=== PATIENT | female | born 1950 | race African-American/Black ===

== ENCOUNTER 2016-07-19 14:06 | Emergency (ER) | payer MEDICARE, OTHER ==
[~2016-07-19] VITALS: Ht 162.6 cm; Wt 75.0 kg
[~2016-07-19 14:06] MED LIST: FAMO-18 PO; HYDR-762 PO; VALA100057 PO
[2016-07-19 14:43] VITALS: Ht 162.6 cm; Wt 75.0 kg
[2016-07-19] MEDS ORDERED: HYDROCODONE/APAP (5/325) TAB PO ONE (15:30)
[2016-07-19] MEDS ORDERED: IBUPROFEN 600 MG TAB PO ONE (15:30)
--- NOTE | 2016-07-19 16:41 | RADRPT ---
PROCEDURE: XR Hip. CLINICAL INDICATION: 66-year-old female with left hip pain. TECHNIQUE: AP and frog lateral views of the left hip were performed. COMPARISON: None. FINDINGS: There is normal mineralization and alignment. No fracture or osseous lesion is identified. There are normal joints without evidence of arthritis or effusion. The soft tissues are unremarkable. IMPRESSION: Unremarkable left hip. RPTAT:AAJJ Physician Sen Date Time Electronically viewed and signed by Matthew Bhatt Physician on 07/19/2016 16:40 MARIZOL/
[2016-07-19] MEDS ORDERED: HYDR-906 PO (17:30)
[2016-07-19] MEDS ORDERED: BACITUD TOP (17:30)
[2016-07-19 17:50] VITALS: BP 172/86; PULSE 80; RESP 16; TEMP 98.1
--- NOTE | 2016-07-19 18:33 | ERD ---
ER Documentation Chief Complaint Date/Time DATE: 07/19/16 TIME: 18:28 Chief Complaint Pt with L leg rash and pain believes it could be shingles. HPI 66-year-old female patient with a past medical history of hypertension presents to the ED complaining of left leg and hip pain that started 2 days ago. Reports that she started to have a rash on her upper buttocks. States that she also has residual right breast pain due to the shingles she had previously 2 years ago. Describes the pain as sharp and rates it a 10 out of 10. States that the pain shoots down her leg. Denies any trauma or injuries. Denies any abdominal pain, nausea, vomiting, diarrhea, numbness and tingling, weakness, chest pain, shortness of breath, wheezing, dyspnea on exertion, orthopnea. Reports that she has not taken anything for pain. ROS All systems reviewed and are negative except as per history of present illness. Medications Home Meds Active Scripts Bacitracin* (Bacitracin Oint (UD)*) 1 Applic Oint, 1 APPLIC TOP ONCE, #12 PKT APPLY TO Prov:JOLEEN HAIR PA-C 07/19/16 Hydrocodone/Acetaminophen (Bad Axe 5-325 Tablet) 1 Each Tablet, 1 TAB PO QHS Y for PAIN, #14 TAB Prov:JOLEEN HAIR PA-C 07/19/16 Hydrocodone Bit-Acetaminophen* (Bad Axe*) 10-325 Mg Tablet, 1 TAB PO Q6 Y for PAIN , #20 TAB Prov:VALERY BYRNES MD 01/04/15 Famotidine* (Pepcid*) 20 Mg Tablet, 20 MG PO BID for 14 Days, TAB Prov:VALERY BYRNES MD 01/04/15 Valacyclovir Hcl* (Valtrex*) 1,000 Mg Tablet, 1000 MG PO TID for 7 Days Prov:VALERY BYRNES MD 01/04/15 Allergies Allergies: Coded Allergies: No Known Allergy (Unverified , 07/19/16) PMhx/Soc Medical and Surgical Hx: pt denies Medical Hx, pt denies Surgical Hx History of Surgery: No Anesthesia Reaction: No Hx Neurological Disorder: No Hx Respiratory Disorders: No Hx Cardiac Disorders: Yes (HTN) Hx Psychiatric Problems: No Hx Miscellaneous Medical Probl: No Hx Alcohol Use: Yes (socially) Hx Substance Use: No Hx Tobacco Use: Yes (1-2 CIGS/DAY) Smoking Status: Current every day smoker Physical Exam Vitals Vital Signs Date Time Temp Pulse Resp B/P Pulse Ox O2 Delivery O2 Flow Rate FiO2 07/19/16 17:50 98.1 80 16 172/86 97 Room Air 07/19/16 14:43 98.3 83 18 182/110 99 Physical Exam Const: [id number], well-nourished. In no acute distress. Head: Atraumatic, normocephalic Eyes: Normal Conjunctiva without injection. No purulent discharge. PERRL. EOMI ENT: Normal external ear. Ear canal without erythema. Tympanic membrane pearly mata without effusion or bulging. Nasal canal clear with normal turbinates. Moist oropharynx without tonsillar exudates. Non-erythematous pharynx. Uvula midline. No drooling. No trismus. Neck: Full range of motion. No meningismus. No cervical lymphadenopathy. Resp: Clear to auscultation bilaterally. No wheezing, rhonchi, rales, or crackles. No accessory muscle use. No retractions. Cardio: Regular rate and rhythm. No murmurs, rubs or gallops. Abd: Soft, non tender, non distended. Normal bowel sounds. No palpable masses. No rebound tenderness. No guarding. Skin: No petechiae or rashes. 1 cm skin tears near pilonidal area. No erythema , fluctuance, edema, noted. Back: No midline tenderness. No CVA tenderness. Tenderness to palpation of the left buttocks. No tenderness to palpation of the bilateral hips. Was unable to perform straight leg test due to patient's pain. Ext: No cyanosis, or edema. Neur: Awake and alert. Psych: Normal Mood and Affect Results 24 hrs Current Medications Medications (Trade) Dose Ordered Sig/Denis Route PRN Reason Start Time Stop Time Status Last Admin Dose Admin Ibuprofen (Motrin) 600 mg ONCE ONCE PO 07/19/16 15:30 07/19/16 15:30 DC Acetaminophen/ Hydrocodone Bitart (Bad Axe (5/325)) 1 tab ONCE ONCE PO 07/19/16 15:30 07/19/16 15:31 DC 07/19/16 15:25 Procedures/MDM This is a 66-year-old female patient with no significant past medical history presents the ED complaining of left buttocks pain that radiates down her leg that started 2 days ago. Patient was noted to have a blood pressure of 182/ 110. Patient has not taken her hypertensive medication. Patient's blood pressure was elevated (>120/80) but appears stable without evidence of hypertension emergency or urgency. The patient was counseled about the risks of hypertension and urged to pursue outpatient monitoring and therapy within a week with their primary care physician. Low suspicion for end organ damage. This case was discussed with my supervising physician, Dr. Garsia who also evaluated patient at this time. Patient states that her pain has improved after receiving Bad Axe here in the ED. Patient symptoms and clinical exam is consistent with sciatica. Patient is ambulating here in the ED without difficulty. Denies saddle anesthesia, numbness or tingling, urine or bowel incontinence, weakness. Low suspicion for cauda equina syndrome, cord compression, nephrolithiasis, aortic aneurysm, aortic dissection, epidural abscess, spinal hematoma, malignancy, pyelonephritis, or other emergent conditions. Patient also was noted to have skin tears on the pilonidal area there is no fluctuance or induration or erythema or fever noted. During the exam, patient also reports that she has been sitting more than usual and doing work on the computer. Low suspicion for pilonidal abscess, perianal abscess, perirectal abscess. Other differential diagnosis considered include but is not limited to allergic contact dermatitis, urticaria, insect bites, eczema, tinea infection, psoriasis. Low suspicion for scabies, SJS/TEN, erythema multiforme, sepsis, cellulitis, necrotizing fascitis, gangrene, meningococcemia or other emergent conditions. Discharge medications: Bacitracin, Bad Axe Follow up with primary care physician in 1-2 days. Instructed patient to return to the ED sooner for any worsening symptoms. Patient's questions were answered. Patient understood and agreed with discharge plan. Patient discharged stable. Departure Diagnosis: Primary Impression: Sciatica Laterality: left Qualified Code: M54.32 - Sciatica of left side Additional Impression: Skin tear Condition: Stable Patient Instructions: Understanding Sciatica, Skin Ulcer, Simple [facility] YOU HAVE RECEIVED A MEDICAL SCREENING EXAM AND THE RESULTS INDICATE THAT YOU DO NOT HAVE A CONDITION THAT REQUIRES URGENT TREATMENT IN THE EMERGENCY DEPARTMENT. FURTHER EVALUATION AND TREATMENT OF YOUR CONDITION CAN WAIT UNTIL YOU ARE SEEN IN YOUR DOCTORS OFFICE WITHIN THE NEXT 1-2 DAYS. IT IS YOUR RESPONSIBILITY TO MAKE AN APPOINTMENT FOR FOLOW-UP CARE. IF YOU HAVE A PRIMARY DOCTOR --you should call your primary doctor and schedule an appointment IF YOU DO NOT HAVE A PRIMARY DOCTOR YOU CAN CALL OUR PHYSICIAN REFERRAL HOTLINE AT IF YOU CAN NOT AFFORD TO SEE A PHYSICIAN YOU CAN CHOSE FROM THE FOLLOWING [facility] [address] [facility] [address] [facility] [address] [facility] [address] [facility] [address] [facility]. [facility] [address] [facility]. [facility] YOU HAVE RECEIVED A MEDICAL SCREENING EXAM AND THE RESULTS INDICATE THAT YOU DO NOT HAVE A CONDITION THAT REQUIRES URGENT TREATMENT IN THE EMERGENCY DEPARTMENT. FURTHER EVALUATION AND TREATMENT OF YOUR CONDITION CAN WAIT UNTIL YOU ARE SEEN IN YOUR DOCTORS OFFICE WITHIN THE NEXT 1-2 DAYS. IT IS YOUR RESPONSIBILITY TO MAKE AN APPOINTMENT FOR FOLOW-UP CARE. IF YOU HAVE A PRIMARY DOCTOR --you should call your primary doctor and schedule and appointment IF YOU DO NOT HAVE A PRIMARY DOCTOR YOU CAN CALL OUR PHYSICIAN REFERRAL HOTLINE AT . IF YOU CAN NOT AFFORD TO SEE A PHYSICIAN YOU CAN CHOSE FROM THE FOLLOWING [facility]: [facility] [address] [place] [address] [facility] [address] [place] [address] [facility] + [facility] [address] [place] [address] [facility] Additional Instructions: Call your primary care doctor TOMORROW for an appointment during the next 2-3 days for a referral to physical therapy.See the doctor sooner or return here if your condition worsens before your appointment time. JOLEEN HAIR PA-C July 19, 2016 18:33
== END 2016-07-19 17:53 | disposition home or self-care (01) ==
LOC: FTE 14:06
DX: M54.32 Sciatica, left side (principal); I10 Essential (primary) hypertension; F17.210 Nicotine dependence, cigarettes, uncomplicated; S31.010A Laceration without foreign body of lower back and pelvis without penetration into retroperitoneum, initial encounter; X58.XXXA Exposure to other specified factors, initial encounter; Y92.9 Unspecified place or not applicable
CPT/HCPCS: 73502; 73510